=== PATIENT | female | born 1950 | race Caucasian/White ===

== ENCOUNTER 2025-04-29 19:09 | Inpatient (IN) | payer MEDICARE, BC ==
[~2025-04-29] VITALS: Ht 160 cm; Wt 52.5 kg
[~2025-04-29 19:09] MED LIST: ACET-1008 PO; ALPR1TAB2 PO; LOP25T PO; REM15T PO
--- NOTE | 2025-04-29 19:24 | ELECTROCARDIOGRAPH REPORT ---
[facility] Test Date: 2025-04-29 Test Time: 19:16:35 Pat Name: STEPHANY ALBERTS Department: EMERGENCY ROOM Room: [place] [address] Gender: F Electroplater: SANGEETHA : 1950 Requested By: FEROZ UNDERWOOD Order Number: [id number] Reading MD: Dr. Romel Gonzales Measurements Intervals [place] Rate: 57 P: 23 AK: 173 QRS: 12 QRSD: 96 T: 63 QT: 459 QTc: 447 Interpretive Statements Sinus bradycardia Borderline T wave abnormalities Electronically Signed On 05-07-2025 20:06:[address] Romel Gonzales Please click the below link to view image of tracing.
[2025-04-29 19:34] LABS: MEAN PLATELET VOLUME 8.0 FL (7.4-10.4); RED CELL DISTRIBUTION WIDTH 15.3 % (11.5-14.5)
[2025-04-29 19:39] LABS: CREATININE 0.70 MG/DL (0.40-0.90); TOTAL CARBON DIOXIDE 28.1 MMOL/L (24-32); eCRCL 46 ML/MIN; eGFR 82 ML/MIN
[2025-04-29 19:44] LABS: APTT 26 SECONDS (22-32); INR 1.0 INR
--- NOTE | 2025-04-29 19:45 | RADIOLOGY REPORT ---
CT BRAIN WITHOUT CONTRAST HISTORY: Stroke Alert. Slurred speech TECHNIQUE: Axial scans were obtained from the skull base through the vertex without contrast. Sagitta l and coronal reformats were generated. One or more of the following radiation dose reduction techniq ues were used for this examination: automated exposure control, adjustment of the mA and/or kV accord ing to patient size, use of iterative reconstruction technique. COMPARISON: None FINDINGS: Mild generalized cerebral atrophy. No acute intracranial hemorrhage or definite evidence of large vessel territorial infarction identifi ed at this time. Patchy periventricular and subcortical white matter hypoattenuation noted bilaterall y. No midline shift. The basilar cisterns are patent. The visualized paranasal sinuses and mastoid air cells are clear. No grossly displaced calvarial abno rmalities identified. IMPRESSION: No acute intracranial hemorrhage or definite evidence of large vessel territorial infarction identifi ed at this time. Nonspecific white matter changes which may be sequelae of chronic microangiopathy. If there is persistent clinical concern, MRI is recommended to further evaluate.
--- NOTE | 2025-04-29 19:47 | Physician Documentation ---
History of Present Illness ~ Chief Complaint: Stroke Alert Stated Complaint: STROKE SYMPTOMS Time Seen by MD: 19:46 Primary Medical Doctor: Benitez, psychiatry HPI Patient presents to the emergency room with altered mental status. Daughter at bedside states that she saw her mother normal at about 930 this morning when she came home to visit with her mother and drop off some medicines she was locked in her room and had to use a tool to open her room and found her on the floor not acting like herself. No new medications. Upon review of the medications med list that has appear that she takes benzodiazepines. Lips are very dry and this is something new for her reports daughter. Medication Reconciliation Allergies: Coded Allergies: Penicillins (Verified Allergy, Unknown, 04/29/25) aspirin (Verified Allergy, Unknown, 04/29/25) prochlorperazine (Verified Allergy, Unknown, 04/29/25) Scheduled Eszopiclone (Eszopiclone), 1 TAB PO HS, (Reported) Metoprolol Tartrate* (Lopressor*), 12.5 MG PO BID Mirtazapine* (Remeron*), 1 TAB PO HS, (Reported) Varenicline Tartrate (Varenicline Tartrate), 1 TAB PO DAILY, (Reported) Scheduled PRN Acetaminophen* (Tylenol*), 650 MG PO Q6H PRN for pain Alprazolam (Xanax), 0.5 TAB PO Q12H PRN PRN for for anxiety/agitation Miscellaneous Medications Desvenlafaxine Succinate (Desvenlafaxine Succinate ER), (Reported) Past Medical History Past Medical History: Vertigo, Anxiety Past Surgical History: cholecystectomy, tubal ligation Patient History: FH: cancer MOTHER Alcohol Use: Occasionally Drug Use: none Lives In: Home Review of Systems ROS All review of systems negative except as per HPI Physical Exam Vital Signs: Temperature: 98.2, Source: Oral, Heart Rate: 60, Respiratory Rate: 16, BP: 132/77, Pulse Oximetry: 97, Weight: 42.000 Oxygen Flow Rate: 0 General Appearance General: Patient is awake, alert, following commands, slow to respond but does respond appropriately Head: Normocephalic and atraumatic. Eyes: Conjunctival normal. EOMI. PERRL. ENT: Mucous membranes dry. Neck: Supple, trachea is midline. Chest: Clear to auscultation bilaterally without rales, rhonchi, or wheezes. There is no accessory muscle use or retractions. Cardiac: RRR without murmurs, gallops, or rubs. Abd: Soft, nondistended, nontender, with normoactive bowel sounds. No guarding, rebound, or rigidity. Neuro: Cranial nerves II-XII grossly intact. No focal neuro deficits. Negative [id number] test bilaterally Progress Results/Orders Results/Orders Orders - AUNG LIPSCOMB MD Monitor (04/29/25 19:16) 2 Large Bore Ivs (04/29/25 19:16) Chest,Single View (04/29/25 19:36) Accucheck (04/29/25 19:16) Ct Stroke Alert (04/29/25 19:15) Page Hospitalist (04/29/25 20:28) Fill Out Med Reconciliation (04/29/25 20:28) Completed Orders - AUNG LIPSCOMB MD Cbc/Diff (04/29/25 19:16) Electrocardiogram (04/29/25 19:16) Chest,Single View (04/29/25 19:36) Ct Stroke Alert (04/29/25 19:15) BMP (04/29/25 19:16) PTT (04/29/25 19:16) Pt Inr (04/29/25 19:16) Vital Signs 04/29/25 04/29/25 04/29/25 04/29/25 19:11 19:43 19:57 20:43 Temp 98.2 Pulse 60 58 58 Resp 16 16 16 16 B/P (MAP) 132/77 135/85 161/92 (115) Pulse Ox 97 97 98 O2 Flow Rate 0 0 Laboratory Tests Test 04/29/25 19:21 White Blood Count 5.6 Red Blood Count 4.24 Hemoglobin 11.7 L Hematocrit 35.4 Mean Corpuscular Volume 83.3 Mean Corpuscular Hemoglobin 27.5 Mean Corpuscular Hemoglobin Concent 33.0 Red Cell Distribution Width 15.3 H Platelet Count 209 Mean Platelet Volume 8.0 Neutrophils (%) (Auto) 69.9 Lymphocytes (%) (Auto) 19.0 L Monocytes (%) (Auto) 7.1 Eosinophils (%) (Auto) 3.2 Basophils (%) (Auto) 0.8 Neutrophils # (Auto) 3.9 Lymphocytes # (Auto) 1.1 Monocytes # (Auto) 0.4 Eosinophils # (Auto) 0.2 Basophils # (Auto) 0.0 CBC Comment Prothrombin Time 10.4 INR International Normalized Ratio 1.0 Activated Partial Thromboplast Time 26 Coagulation Comments Sodium Level 137 Potassium Level 3.6 Chloride Level 104 Carbon Dioxide Level 28.1 Anion Gap 5 L Blood Urea Nitrogen 5 L Creatinine 0.70 Estimated GFR/1.73 m2 82 BUN/Creatinine Ratio 7.1 L Glucose Level 101 Calcium Level 9.4 Albumin 3.5 Chemistry Comments Medical Decision Making Findings Patient presents to the emergency room with altered mental status. Differentials include but are not limited to stroke, metabolic encephalopathy, urinary tract infection, medication side effect therefore emergent labs and imaging indicated. CT scan is reassuring. Symptoms more consistent with metabolic disturbances. Possible relation to medication side effect from Xanax that was seen prescribed to her recently. We will admit for further investigation Departure Admitted to Inpatient Unit: yes, to hospitalist Impression: Primary Impression: Metabolic encephalopathy Additional Impression: Possible stroke Condition: Guarded Referrals: NO PRIMARY CARE PROVIDER (PCP) Signature Scribe Signature: No scribe Attestation: The note accurately reflects work and decisions made by me.Aung Lipscomb MD 04/29/25 21:23 AUNG LIPSCOMB MD Apr 29, 2025 19:47
--- NOTE | 2025-04-29 19:48 | RADIOLOGY REPORT ---
CHEST RADIOGRAPH Indication: Stroke Alert Technique: Single frontal view of the chest was obtained Comparison: CHEST,SINGLE VIEW on DOS: 05/06/23 FINDINGS: Lines and Tubes: None Lungs: No focal consolidation. Pleura: No effusion. No pneumothorax. Cardiomediastinal contours: Mild cardiomegaly with uncoiling of the aorta. Widening of the mediastinu m which may be from old coiling of the aorta without aneurysm or dissection not excluded Bones: No acute osseous abnormality. IMPRESSION: No acute cardiopulmonary disease. Mild cardiomegaly with widening of the mediastinum which may be from uncoiling of the aorta. CT shoul d be considered for further evaluation if clinically indicated.
[2025-04-29] MEDS ORDERED: DESV50TA20 (21:20)
[2025-04-29] MEDS ORDERED: ESZO3TAB44 PO (21:20)
[2025-04-29] MEDS ORDERED: VARE1TAB24 PO (21:20)
[2025-04-29] MEDS ORDERED: magnesium sulf-water 4G/100mL 100 ML IV PRN (21:45)
[2025-04-29] MEDS ORDERED: magnesium Cl slow-release 64mg tablet PO PRN (21:45)
[2025-04-29] MEDS ORDERED: mag hydrox/Alum hydrox/simeth 30ml oral suspension PO PRN (21:45)
[2025-04-29] MEDS ORDERED: magnesium sulf-water 2g/50mL 50 ML IV PRN (21:45)
[2025-04-29] MEDS ORDERED: potassium Cl 20 mEq SR tablet PO PRN (21:45)
[2025-04-29] MEDS ORDERED: potassium Cl 40MEQ/1/2NS 520ml 520 ML IV PRN (21:45)
[2025-04-29] MEDS ORDERED: ondansetron/PF 4mg/2ml inj IV PRN (21:45)
[2025-04-29] MEDS ORDERED: magnesium hydroxide 30ml (MOM) UD suspension PO PRN (21:45)
[2025-04-29] MEDS: CefTRIAXone 2gm/D5W 50ml BAG 50 ML IV SCH (22:04)
[2025-04-29] MEDS: normal saline 1000ml 1,000 ML IV SCH (22:04)
[2025-04-29 22:38] LABS: CREATININE 0.63 MG/DL (0.40-0.90); ETHANOL < 10 MG/DL (<10); PRO BRAIN NATRIURETIC PEPTIDE 162 PG/ML (0-450); TOTAL CARBON DIOXIDE 27.6 MMOL/L (24-32); eCRCL 51 ML/MIN; eGFR > 90 ML/MIN
[2025-04-29 23:00] VITALS: BP 160/98; PULSE 61; RESP 16; TEMP 97.8; O2SAT 97
--- NOTE | 2025-04-29 23:14 | [facility] CONSULT REPORT ---
[facility] Procedure Note [facility] Procedure Note Consult [facility] Note # Demographics Consult Type: Acute Stroke Level 2 (4.5-24 hrs) Patient Location: Emergency Room First Name: STEPHANY Last Name: LEXUS Date of : 1950 Age: 75 Gender: Female Facility: [facility] Time of Initial Page ([place] Time): 04/29/2025 19:47 Time of Return Call ([place] Time): 04/29/2025 19:47 Phone Agreement: - phone consult deemed mutually sufficient for patient care # HPI History: 75 y/o M presents with AMS and talking slowly. # Plan Labs: - CBC - comprehensive metabolic panel - TSH - urine drug screen - ua ETOH Imaging: (urgency: routine): - CT Head without contrast - MRI Brain without contrast - CT Angiogram Head and CT Angiogram Neck Other: - If patient has any neurological deterioration please call me back immediately # Logistics Attestation of consult completion: The patient is located at: [facility]. I performed this phone consultation from my offsite office Total time spent in telemedicine encounter: I spent 10 minutes in reviewing clinical data and/or imaging, obtaining history, communicating with the onsite care team, and in preparation of this report. # Demographics First Name: STEPHANY Last Name: LEXUS Facility: [facility] Electronically signed at 04/29/2025 23:14 ([place] Time) by Kera Neri DO Neuro Consult Order placed for: Yes MICHAEL NERI DO Apr 29, 2025 23:14
--- NOTE | 2025-04-29 23:16 | HISTORY AND PHYSICAL-Residence ---
History & Physical Providers to CC Resident Creating Document: PRETTY LONG RES ~ History of Present Illness Primary Medical Doctor: shira Marquis Reason for Admit\Complaint: Confusion History of Present Illness The 75-year-old female was brought to the ER with a chief concern of altered mental status. Patient is awake and is having confused speech. All the information is derived from her daughter was at the bedside. Per daughter, the patient was normal at around 9:30 a.m. this morning. She did all her toes. At around 10:30 a.m., patient accompanied her daughter to the bank but did not going to the bank and remained in the car. She Peed in her pants and also she looked lethargic to her daughter but she was oriented with her speech. Later, at around 5:40 p.m., the daughter noticed the patient being locked in her room. The patient kept on saying that she is not able to open the door. Door opened by the daughter and found the patient on the floor with urine around her. Denies any history of seizures and did not notice any abnormal movements. Did not notice any feces around her and is unsure if she had a fall. Patient had a drink this morning which contain 5% alcohol. Per daughter, patient has been having incontinence for the last few days. Denies any nausea, vomiting, constipation or diarrhea or any other complaints. Denies any CVA or cardiac issues in the past. Patient's daughter denies knowing any of her previous medical history. Has a DNR form. Patient lives by herself. Allergies: Coded Allergies: Penicillins (Verified Allergy, Unknown, 04/29/25) aspirin (Verified Allergy, Unknown, 04/29/25) prochlorperazine (Verified Allergy, Unknown, 04/29/25) Home Medications Home Medications Active Xanax (Alprazolam) 1 Mg Tablet 0.5 Tab PO Q12H PRN PRN 30 Days Lopressor* (Metoprolol Tartrate) 25 Mg Tablet 12.5 Mg PO BID 30 Days Tylenol* (Acetaminophen) 325 Mg Tablet 650 Mg PO Q6H PRN Reported Varenicline Tartrate 1 Mg Tablet 1 Tab PO DAILY Eszopiclone 3 Mg Tablet 1 Tab PO HS Desvenlafaxine Succinate ER (Desvenlafaxine Succinate) 50 Mg Tab.er.24h Remeron* (Mirtazapine) 15 Mg Tablet 1 Tab PO HS Past Medical History Past Medical History Patient is confused and daughter does not know her previous medical history. Per records, Vertigo, Anxiety, syncope, hypotension, breast cancer-refused treatment Past Surgical History Surgical History Comment Patient is confused and daughter does not know her previous medical history. Per records, Cholecystectomy, tubal ligation, wrist surgery Family History Family History: FH: cancer MOTHER Past Social History Social History Comment Per patient's daughter, denies smoking tobacco. Occasionally drinks alcohol and denies recreational drug abuse Alcohol Use: Occasionally Drug Use: None Lives In: Home ROS ROS Patient is confused and so could not do the review of systems Exam Vitals: Vital Signs Date Time Temp Pulse Resp B/P (MAP) Pulse Ox O2 Delivery O2 Flow Rate FiO2 04/29/25 20:43 58 16 161/92 (115) 98 0 04/29/25 19:11 98.2 General: Awake and alert. GCS 12-spontaneous eye opening, confused verbal response, withdraws from pain HEENT: Normocephalic and atraumatic. Pupils equal round reactive to light and accommodation. Extraocular movements intact. Oral and nasal mucosa moist Neck: Trachea is in midline. No masses or JVD Chest: Bilateral normal breath sounds. No crackles, rhonchi or wheezes Cardiovascular: Regular rate and rhythm. S1-S2 normal. No rubs or murmurs Abdomen: Soft, nontender nondistended. Bowel sounds present Extremities: No cyanosis, clubbing or edema Central Nervous System: Patient is not able to follow commands. Is able to move all her extremities without any difficulty Skin: Warm and dry Diagnostic Data Last Recorded Lab Results: 04/29/25192004/29/250 Diagnostic Data: Laboratory Tests Test 04/29/25 19:21 Prothrombin Time 10.4 SECONDS (9.0-12.0) INR International Normalized Ratio 1.0 INR Activated Partial Thromboplast Time 26 SECONDS (22-32) Coagulation Comments Advance Care Planning Advanced Care plannin - 30 Minutes Additional Plan Acute encephalopathy Could be toxic from medication overdose-has Xanax, Lunesta in her home medications Hold Xanax and Lunesta Pending urine analysis and urine tox Ethyl alcohol level not elevated Urine incontinence. So, started Rocephin 2 g IV daily prophylactically for possible UTI Head CT showed no acute intracranial abnormalities. Findings of chronic microangiopathy Tele neurology consult done. Recommended head MRI, head and neck CTA, CBC, CMP, TSH, urine tox screen, UA, ethyl alcohol All the above orders placed Pending ammonia levels. Normal LFTs EKG shows sinus bradycardia with non specific T-wave inversions. Held home medication metoprolol Heart rate remains in 50s Continue normal saline at 75 cc/hour Mediastinal widening Chest x-ray shows mild cardiomegaly with widening of the mediastinum which may be from old coiling of the aorta without aneurysm or dissection not excluded Chest CTA ordered per tele software computer specialist recommendations to look for dissection Patient denies any chest pain or back pain Systolic blood pressure in 160 and 170s Did not give any antihypertensive medication as stroke is not ruled out yet Tobacco abuse Patient's daughter denies any tobacco abuse Has varenicline in her home medications Continue varenicline 1 mg p.o. daily # Diet: Start heart healthy diet if passes swallow evaluation. Able to drink water with a renin difficulty DVT prophylaxis: Start Lovenox 40 mg subcutaneous daily after head MRI Pretty Long MD Internal Medicine Resident, PGY 3 Patient evaluated using HIPPA compliant AV device early hours of today Discussed with resident as outlined above Marco Hope MD Date of Service: Apr 30, 2025 Billing Provider: MARCO HOPE MD, MANOJNA RES Apr 29, 2025 23:16 MARCO HOPE MD Apr 30, 2025 16:41
[2025-04-30 03:58] LABS: LEUKOCYTE ESTERASE ,URINE LARGE (Neg); NITRITES, URINE POSITIVE (Neg); OCCULT BLOOD,URINE NEGATIVE (Neg); URINE AMPHETAMINE SCREEN NEGATIVE (Neg); URINE BARBITUATE SCREEN NEGATIVE (Neg); URINE BENZODIAZEPINES SCREEN POSITIVE (Neg); URINE CANNABINOID SCREEN NEGATIVE (Neg); URINE COCAINE SCREEN NEGATIVE (Neg); URINE METHADONE SCREEN NEGATIVE (Neg); URINE OPIATE SCREEN NEGATIVE (Neg); URINE PHENCYCLIDINE SCREEN NEGATIVE (Neg)
[2025-04-30 04:02] LABS: UA COLLECTION TYPE NON-SPECIFIED
[2025-04-30 04:07] LABS: SQUAMOUS EPITHELIAL CELL,UR FEW /LPF (FEW); WBC CLUMPS,URINE MODERATE /HPF (NEGATIVE)
[2025-04-30 06:00] VITALS: BP 154/79; PULSE 57; RESP 16; TEMP 97.4; O2SAT 98
[2025-04-30] MEDS ORDERED: iohexol 350 MG/ML 50ML vial IV ONE (07:18)
[2025-04-30] MEDS: K and/or MAG REPLACEMENT MC SCH (08:00)
[2025-04-30 10:00] VITALS: BP 167/89; PULSE 60; RESP 20; TEMP 97.2; O2SAT 94
--- NOTE | 2025-04-30 10:07 | RADIOLOGY REPORT ---
INDICATION: rule out large vessel occlusion COMPARISON: CT head dated 04/29/2025 TECHNIQUE: CTA head with intravenous contrast. CTA neck with intravenous contrast. 3D image postpr ocessing was performed on a dedicated workstation and images were used for interpretation and reporti ng. Radiation Dose Information: CT Dose: CTDI volume is 11 mGy. Dose-length product is 389 mGy*cm FINDINGS: CTA head: There is normal enhancement of the visualized distal internal carotid, anterior and middle cerebral a rteries. There is a normal anterior communicating artery complex. There are bilateral posterior com municating arteries. The vertebral, basilar, cerebellar and posterior cerebral arteries are within n ormal limits. The early parenchymal enhancement is grossly unremarkable. The visualized intracrania l venous structures are grossly unremarkable. CTA neck: The visualized thoracic aortic arch and proximal great vessels are unremarkable. Atherosclerotic plaque at bilateral proximal internal carotid arteries and carotid artery bulbs with less than 50% stenosis. The cervical segments of the right and left vertebral arteries are within normal limits. The limited visualized lung apices are clear. Degenerative changes of the spine. Grade 1 anterolisthesis of C4 on C5. IMPRESSION: No evidence of hemodynamically significant intracranial stenosis, proximal occlusion or aneurysm. No evidence of hemodynamically significant cervical stenosis or dissection. All CT scans at this medical facility are performed using dose modulation techniques as appropriate t o a performed exam including the following: Automated exposure control was utilized; adjustment of th e MA and/or KV according to patient size; and use of iterative reconstruction technique.
[2025-04-30 10:23] LABS: MEAN PLATELET VOLUME 7.9 FL (7.4-10.4); RED CELL DISTRIBUTION WIDTH 15.2 % (11.5-14.5)
[2025-04-30 10:37] LABS: APTT 31 SECONDS (22-32); INR 1.4 INR
[2025-04-30 10:48] LABS: CHOL/HDL RATIO 2.9 (0.00-4.99); CREATININE 0.58 MG/DL (0.40-0.90); LDL CHOLESTEROL 101 MG/DL (50-100); PHOSPHORUS 3.5 MG/DL (2.3-4.5); TOTAL CARBON DIOXIDE 26.4 MMOL/L (24-32); eCRCL 69 ML/MIN; eGFR > 90 ML/MIN
[2025-04-30 18:00] VITALS: BP 181/99; PULSE 64; RESP 16; TEMP 97.9; O2SAT 95
--- NOTE | 2025-04-30 20:19 | RADIOLOGY REPORT ---
COMPUTERIZED TOMOGRAPHIC ANGIOGRAPHY OF THE CHEST WITH INTRAVENOUS CONTRAST REASON FOR EXAM: r/o dissection. Chest pain. COMPARISON: None TECHNIQUE: The exam was performed on a multidetector spiral scanner. Spiral images were acquired fro m the thoracic inlet through the adrenal glands, during the bolus intravenous administration of cont rast. Multiplanar maximum intensity projection (MIP) images were provided. Radiation optimization: Al l CT scans at this facility use at least one of these dose optimization techniques: Automated exposur e control mA and/or kV adjustment per patient size (includes targeted exams where dose is matched to clinical indication) or iterative reconstruction. RADIATION DOSE: CTDI: 47 mGy DLP: 504 mGy-cm FINDINGS: There is a 4 mm pleural-based triangular nodule in the inferior right middle lobe most con sistent with an intrapulmonary lymph node. There is mild dependent atelectasis in bilateral lower lob es of the lungs. There is no pleural effusion. There is no pneumothorax. The heart is enlarged. The re is no pericardial effusion. The ascending aorta is mildly aneurysmal at 4.1 cm. There is no thorac ic aortic dissection or intramural hematoma. There is no pulmonary arterial filling defect as far as the interlobar level to suggest pulmonary embolism. No pathologic lymphadenopathy is identified in th e chest by size criteria. The upper abdomen is partially visualized. The gallbladder is surgically absent. There is mild intrah epatic biliary dilation, likely secondary to cholecystectomy. There is acute appearing moderate compr ession deformity of T12. There is age-indeterminate mild compression deformity at the superior endpl ate of L1. There are additional chronic appearing mild compression deformities at T9 and T10. IMPRESSION: No thoracic aortic dissection or intramural hematoma. Mild aneurysmal dilation of the ascending aorta at 4.1 cm. No evidence of pulmonary embolism as far as the interlobar level. Acute appearing moderate compression deformity at T12. Additional indeterminate and chronic compressi on deformities at L1, T9, and T10. Correlate clinically for chronicity of back pain. MRI can be perfo rmed if clinically indicated to determine chronicity of compression fractures.
--- NOTE | 2025-04-30 21:01 | PROGRESS NOTE ---
Daily Progress Note Providers to CC ~ Antibiotic Timeout Antibiotic Ordered?: No Subjective Patient was seen in presence of her daughter her daughter does not live with her and patient lives by herself. She was confused take all four or five psych meds from Dr. Mejia. Blood pressure was elevated for which antihypertensive medication started. Objective Vital Signs Date Time Temp Pulse Resp B/P (MAP) Pulse Ox O2 Delivery O2 Flow Rate FiO2 04/30/25 18:30 73 04/30/25 10:00 97.2 20 167/89 (115) 94 Room Air 04/30/25 08:00 0.0 Result Diagram: 04/30/25 1010 04/30/25 1010 General-patient not in any acute distress, chronically ill-appearing, confused HEENT-atraumatic normocephalic, neck supple without elevated JVD, no thyromegaly or carotid bruit. No lymphadenopathy bilaterally. Eyes-no icterus or pallor seen in eyes Chest-clear to auscultation bilaterally, breathing nonlabored no tachypnea, no wheezing, no crepitation, no crackles. Heart-S1-S2 normal, regular heart rate no murmur Abdomen bowel sounds positive on auscultation, soft nondistended nontender no guarding, no rigidity Skin no active skin rash Neurology-grossly intact, nonfocal , patient is confused signs of dementia present Extremity- no pedal edema able to move all 4 extremities Psychiatry - patient is confused but not agitated cooperated during physical examination Coagulation Studies Laboratory Tests Test 04/30/25 10:10 Prothrombin Time 14.0 SECONDS (9.0-12.0) H INR International Normalized Ratio 1.4 INR Activated Partial Thromboplast Time 31 SECONDS (22-32) Coagulation Comments Problem\Assessment\Plan Acute encephalopathy Could be toxic from medication overdose-has Xanax, Lunesta and other her home medications Urine testing showed signs of UTI on ceftriaxone currently. Ethyl alcohol level not elevated Head CT showed no acute intracranial abnormalities. Findings of chronic microangiopathy Tele neurology consult done. Recommended head MRI, head and neck CTA, CBC, CMP, TSH, urine tox screen, UA, ethyl alcohol All the above orders placed normal ammonia levels. Normal LFTs EKG shows sinus bradycardia with non specific T-wave inversions. Held home medication metoprolol Heart rate remains in 50s Continue normal saline at 75 cc/hour Mediastinal widening Chest x-ray shows mild cardiomegaly with widening of the mediastinum which may be from old coiling of the aorta without aneurysm or dissection not excluded Chest CTA ordered per tele lingo cleaner recommendations to look for dissection Patient denies any chest pain or back pain Systolic blood pressure in 160 and 170s, started on antihypertensive meds Tobacco abuse Patient's daughter denies any tobacco abuse Has varenicline in her home medications Continue varenicline 1 mg p.o. daily Patient's current condition is guarded we will continue to follow patient in AM . Date of Service: Apr 30, 2025 Billing Provider: VALERIE MOISE MD Common Visit Codes: [id number] INP/OBS CARE(HIGH) VALERIE MOISE MD Apr 30, 2025 21:01
[2025-04-30 22:00] VITALS: BP 121/86; PULSE 57; RESP 18; O2SAT 97
[2025-05-01] MEDS ORDERED: haloperidol lactate 5mg/ml inj IM PRN (00:10)
[2025-05-01 05:27] LABS: MEAN PLATELET VOLUME 8.5 FL (7.4-10.4); RED CELL DISTRIBUTION WIDTH 15.7 % (11.5-14.5)
[2025-05-01 05:42] LABS: APTT 26 SECONDS (22-32); INR 1.0 INR
[2025-05-01 05:55] LABS: CREATININE 0.56 MG/DL (0.40-0.90); PHOSPHORUS 3.7 MG/DL (2.3-4.5); TOTAL CARBON DIOXIDE 28.4 MMOL/L (24-32); eCRCL 72 ML/MIN; eGFR > 90 ML/MIN
[2025-05-01 06:00] VITALS: BP 127/80; PULSE 74; RESP 14; TEMP 97.8; O2SAT 96
[2025-05-01 10:00] VITALS: BP 109/76; PULSE 57; RESP 16; TEMP 97.8; O2SAT 96
--- NOTE | 2025-05-01 15:53 | RADIOLOGY REPORT ---
CLINICAL INDICATION: rule out stroke COMPARISON: CT dated 04/29/2025. CTA dated 04/30/2025. TECHNIQUE: Multisequence multiplanar MRI images of the brain were obtained without contrast. FINDINGS: Motion artifact limits evaluation on some sequences, greatest involving the T2 star sequenc e, limiting evaluation. No acute infarct or hemorrhage. No mass or midline shift. Scattered areas of T2/FLAIR hyperintense signal in the periventricular and subcortical white matter are nonspecific, but most likely sequelae of chronic small vessel ischemic disease. Partially empty sella. Atrophic spaulding es with dilation of the ventricles and widening of the sulci. Basal cisterns are patent. Cerebellum, brainstem, and midline structures are within normal limits. Mild mucosal thickening of the paranasal sinuses with fluid filling the left side of the sphenoid sinus. Bilateral lens prostheses incidentall y noted. Orbits are otherwise grossly unremarkable. IMPRESSION: 1. Motion limited study. 2. No evidence of acute infarct. No evidence of acute intracranial abnormality. 3. Nonacute findings as described above.
[2025-05-01 18:30] VITALS: BP 102/68; PULSE 64; RESP 16; TEMP 97.6; O2SAT 96
[2025-05-01 22:00] VITALS: BP 93/57; PULSE 58; RESP 17; TEMP 97.4; O2SAT 93
[2025-05-01] MEDS: potassium Cl 20 mEq SR tablet PO PRN (22:32)
[2025-05-02 05:25] LABS: MEAN PLATELET VOLUME 8.3 FL (7.4-10.4); RED CELL DISTRIBUTION WIDTH 15.2 % (11.5-14.5)
[2025-05-02 05:38] LABS: APTT 24 SECONDS (22-32); INR 1.0 INR
[2025-05-02 05:46] LABS: TOTAL CARBON DIOXIDE 24.4 MMOL/L (24-32)
[2025-05-02 05:47] LABS: CREATININE 1.00 MG/DL (0.40-0.90); PHOSPHORUS 4.4 MG/DL (2.3-4.5); eCRCL 40 ML/MIN; eGFR 54 ML/MIN
[2025-05-02 06:00] VITALS: BP 100/55; PULSE 60; RESP 17; TEMP 97.8; O2SAT 93
[2025-05-02 10:00] VITALS: BP 100/76; PULSE 61; RESP 15; TEMP 97.7; O2SAT 99
[2025-05-02 13:39] VITALS: BP 100/76; PULSE 61; RESP 15; TEMP 97.7; O2SAT 99
--- NOTE | 2025-05-02 14:38 | PROGRESS NOTE ---
Daily Progress Note Providers to CC ~ Antibiotic Timeout Antibiotic Ordered?: Yes Subjective Patient was seen in her room she is less confused as compared to yesterday and able to communicate her needs. Objective Vital Signs Date Time Temp Pulse Resp B/P (MAP) Pulse Ox O2 Delivery O2 Flow Rate FiO2 05/02/25 13:39 97.7 61 15 100/76 (84) 99 Room Air 05/01/25 08:00 0.0 Result Diagram: 05/02/25 0454 05/02/25 0454 General-patient not in any acute distress, chronically ill-appearing, less confused HEENT-atraumatic normocephalic, neck supple without elevated JVD, no thyromegaly or carotid bruit. No lymphadenopathy bilaterally. Eyes-no icterus or pallor seen in eyes Chest-clear to auscultation bilaterally, breathing nonlabored no tachypnea, no wheezing, no crepitation, no crackles. Heart-S1-S2 normal, regular heart rate no murmur Abdomen bowel sounds positive on auscultation, soft nondistended nontender no guarding, no rigidity Skin no active skin rash Neurology-grossly intact, nonfocal , patient is less confused Extremity- no pedal edema able to move all 4 extremities Psychiatry - patient is confused but not agitated cooperated during physical examination Coagulation Studies Laboratory Tests Test 05/02/25 04:54 Prothrombin Time 10.6 SECONDS (9.0-12.0) INR International Normalized Ratio 1.0 INR Activated Partial Thromboplast Time 24 SECONDS (22-32) Coagulation Comments Problem\Assessment\Plan Acute encephalopathy Could be toxic from medication overdose-has Xanax, Lunesta and other her home medications Urine testing showed signs of UTI on ceftriaxone currently. Ethyl alcohol level not elevated Head CT showed no acute intracranial abnormalities. Findings of chronic microangiopathy Tele neurology consult done. Recommended head MRI, head and neck CTA, CBC, CMP, TSH, urine tox screen, UA, ethyl alcohol All the above orders placed normal ammonia levels. Normal LFTs EKG shows sinus bradycardia with non specific T-wave inversions. Held home medication metoprolol Heart rate remains in 50s Continue normal saline at 75 cc/hour Mediastinal widening Chest x-ray shows mild cardiomegaly with widening of the mediastinum which may be from old coiling of the aorta without aneurysm or dissection not excluded Chest CTA ordered per tele golf cart maker recommendations to look for dissection Patient denies any chest pain or back pain Systolic blood pressure in 160 and 170s, started on antihypertensive meds Tobacco abuse Patient's daughter denies any tobacco abuse Has varenicline in her home medications Continue varenicline 1 mg p.o. daily Patient's current condition is guarded we will continue to follow patient in AM . Patient is medically clear for mental health evaluation. Date of Service: May 01, 2025 Billing Provider: VALERIE MOISE MD Common Visit Codes: [id number] INP/OBS CARE(HIGH) VALERIE MOISE MD May 02, 2025 14:38
[2025-05-02 18:00] VITALS: BP 139/92; PULSE 84; RESP 14; TEMP 97.5; O2SAT 96
--- NOTE | 2025-05-02 19:10 | PROGRESS NOTE ---
Daily Progress Note Providers to CC ~ Antibiotic Timeout Antibiotic Ordered?: No Subjective Patient was seen in presence of patient's daughter who was present at bedside. All labs and diagnostic workup discussed in detail. It is recommended that she should talk to the casey saw operator regarding care plan [place] [id number] in we will be evaluated by [facility]. franchise manager Ms. Teran working on discharge plan Objective Vital Signs Date Time Temp Pulse Resp B/P (MAP) Pulse Ox O2 Delivery O2 Flow Rate FiO2 05/02/25 18:00 97.5 84 14 139/92 (108) 96 Room Air 05/01/25 08:00 0.0 Result Diagram: 05/02/25 0454 05/02/25 0454 General-patient not in any acute distress, chronically ill-appearing, not confused HEENT-atraumatic normocephalic, neck supple without elevated JVD, no thyromegaly or carotid bruit. No lymphadenopathy bilaterally. Eyes-no icterus or pallor seen in eyes Chest-clear to auscultation bilaterally, breathing nonlabored no tachypnea, no wheezing, no crepitation, no crackles. Heart-S1-S2 normal, regular heart rate no murmur Abdomen bowel sounds positive on auscultation, soft nondistended nontender no guarding, no rigidity Skin no active skin rash Neurology-grossly intact, nonfocal , patient is not confused Extremity- no pedal edema able to move all 4 extremities Psychiatry - patient is confused but not agitated cooperated during physical examination Coagulation Studies Laboratory Tests Test 05/02/25 04:54 Prothrombin Time 10.6 SECONDS (9.0-12.0) INR International Normalized Ratio 1.0 INR Activated Partial Thromboplast Time 24 SECONDS (22-32) Coagulation Comments Problem\Assessment\Plan Acute encephalopathy Could be toxic from medication overdose-has Xanax, Lunesta and other her home medications Urine testing showed signs of UTI on ceftriaxone currently. Ethyl alcohol level not elevated Head CT showed no acute intracranial abnormalities. Findings of chronic microangiopathy Tele neurology consult done. Recommended head MRI, head and neck CTA, CBC, CMP, TSH, urine tox screen, UA, ethyl alcohol All the above orders placed normal ammonia levels. Normal LFTs EKG shows sinus bradycardia with non specific T-wave inversions. Held home medication metoprolol Heart rate remains in 50s Continue normal saline at 75 cc/hour Mediastinal widening Chest x-ray shows mild cardiomegaly with widening of the mediastinum which may be from old coiling of the aorta without aneurysm or dissection not excluded Chest CTA ordered per tele it software developer recommendations to look for dissection Patient denies any chest pain or back pain Systolic blood pressure in 160 and 170s, started on antihypertensive meds Tobacco abuse Patient's daughter denies any tobacco abuse Has varenicline in her home medications Continue varenicline 1 mg p.o. daily Patient's current condition is guarded we will continue to follow patient in AM . Patient is medically clear for mental health evaluation. Date of Service: May 02, 2025 Billing Provider: VALERIE MOISE MD Common Visit Codes: [id number] INP/OBS CARE(HIGH) VALERIE MOISE MD May 02, 2025 19:10
[2025-05-02 22:00] VITALS: BP 142/92; PULSE 71; RESP 16; TEMP 98.2; O2SAT 98
[2025-05-03 06:00] VITALS: BP 161/84; PULSE 69; RESP 16; TEMP 98.2; O2SAT 99
[2025-05-03 06:37] LABS: CREATININE 0.51 MG/DL (0.40-0.90); PHOSPHORUS 3.3 MG/DL (2.3-4.5); TOTAL CARBON DIOXIDE 24.9 MMOL/L (24-32); eCRCL 79 ML/MIN; eGFR > 90 ML/MIN
[2025-05-03 07:48] LABS: MEAN PLATELET VOLUME 8.5 FL (7.4-10.4); RED CELL DISTRIBUTION WIDTH 15.4 % (11.5-14.5)
[2025-05-03 08:00] VITALS: RESP 16; O2SAT 99
[2025-05-03 08:33] LABS: INR 1.0 INR
[2025-05-03 10:00] VITALS: BP 135/86; PULSE 92; RESP 16; TEMP 98.1; O2SAT 95
--- NOTE | 2025-05-03 19:19 | DISCHARGE SUMMARY ---
Discharge Summary Providers to CC ~ Discharge Summary Admission Diagnosis: Acute encephalopathy Hospital Course DATE OF ADMISSION: April 29, 2025 DATE OF DISCHARGE: May 03, 2025 Lab testing done on May 03, 2025 showed normal CBC, normal CMP. Urine drug screen positive for benzodiazepine ethyl alcohol less than 10. Urine culture showed mixed nelson MRI HEADIMPRESSION: 1. Motion limited study. 2. No evidence of acute infarct. No evidence of acute intracranial abnormality. 3. Nonacute findings as described above. CTA CHEST AORTAIMPRESSION: No thoracic aortic dissection or intramural hematoma. Mild aneurysmal dilation of the ascending aorta at 4.1 cm. No evidence of pulmonary embolism as far as the interlobar level. Acute appearing moderate compression deformity at T12. Additional indeterminate and chronic compression deformities at L1, T9, and T10. Correlate clinically for chronicity of back pain. MRI can be performed if clinically indicated to determine chronicity of compression fractures. CTA NECK/HEAD-IMPRESSION: No evidence of hemodynamically significant intracranial stenosis, proximal occlusion or aneurysm. No evidence of hemodynamically significant cervical stenosis or dissection. All CT scans at this medical facility are performed using dose modulation techniques as appropriate to a performed exam including the following: Automated exposure control was utilized; adjustment of the MA and/or KV according to patient size; and use of iterative reconstruction technique. CHEST,SINGLE VIEW-IMPRESSION: No acute cardiopulmonary disease. Mild cardiomegaly with widening of the mediastinum which may be from uncoiling of the aorta. CT should be considered for further evaluation if clinically indic ated. CT STROKE ALERT-IMPRESSION: No acute intracranial hemorrhage or definite evidence of large vessel territorial infarction identified at this time. Nonspecific white matter changes which may be sequelae of chronic microangiopat hy. If there is persistent clinical concern, MRI is recommended to further evaluate. Discharge Diagnosis\Comment: Acute encephalopathy secondary to psychiatric medication- resolved Acute appearing moderate compression deformity at T12. chronic compression deformities at L1, T9, and T10. Alcohol use Tobacco abuse Operations\Procedures: None Consultants: None Complications: None Condition on DC: Stable Continued Medications: Acetaminophen* (Tylenol*) 325 Mg Tablet 650 MG PO Q6H PRN for pain, #30 2 Refills Alprazolam (Xanax) 1 Mg Tablet 0.5 TAB PO Q12H PRN PRN for for anxiety/agitation for 30 Days, #30 TAB Desvenlafaxine Succinate (Desvenlafaxine Succinate ER) 50 Mg Tab.er.24h Eszopiclone (Eszopiclone) 3 Mg Tablet 1 TAB PO HS Metoprolol Tartrate* (Lopressor*) 25 Mg Tablet 12.5 MG PO BID for 30 Days, 3 Refills Mirtazapine* (Remeron*) 15 Mg Tablet 1 TAB PO HS, TAB Varenicline Tartrate (Varenicline Tartrate) 1 Mg Tablet 1 TAB PO DAILY Discharge Summary: Acute encephalopathy -resolved Could be toxic from medication overdose-has Xanax, Lunesta and other her home medications Urine testing showed signs of UTI on ceftriaxone currently urine culture showed mixed nelson Mediastinal widening Chest x-ray shows mild cardiomegaly with widening of the mediastinum which may be from old coiling of the aorta without aneurysm or dissection not excluded Chest CTA No thoracic aortic dissection or intramural hematoma. Mild aneurysmal dilation of the ascending aorta at 4.1 cm. o evidence of pulmonary embolism as far as the interlobar level. Tobacco abuse Has varenicline in her home medications Continue varenicline 1 mg p.o. daily Patient was started on 1798 and evaluated by [facility]. They discharge the patient today and patient ambulated with physical therapy. Patient is feeling better and it was strongly recommended to the patient not to combine alcohol with the her other benzodiazepine and psychiatric meds. She is getting discharged home in stable condition. Patient is seen and examined on the day of discharge discharge instructions provided to the patient all questions and concerns answered to the best of my professional medical knowledge. PLEASE FOLLOW-UP WITH PCP, PSYCHIATRY SPECIALIST IN ONE WEEK. READ THE SIDE EFFECTS OF ALL YOUR MEDICATION AND DISCUSSED WITH THE PRIMARY CARE P HYSICIAN AND PSYCHIATRY SPECIALIST WHO IS PRESCRIBING THOSE MEDICATIONS TO YOU. PLEASE PROVIDE FALL PRECAUTIONS DOCUMENT IT IS RECOMMENDED TO USE THE CANE FOR AMBULATION. PLEASE DO NOT COMBINE YOUR MEDICATIONS WITH ALCOHOL. General-patient not in any acute distress, chronically ill-appearing, not confused HEENT-atraumatic normocephalic, neck supple without elevated JVD, no thyromegaly or carotid bruit. No lymphadenopathy bilaterally. Eyes-no icterus or pallor seen in eyes Chest-clear to auscultation bilaterally, breathing nonlabored no tachypnea, no wheezing, no crepitation, no crackles. Heart-S1-S2 normal, regular heart rate no murmur Abdomen bowel sounds positive on auscultation, soft nondistended nontender no guarding, no rigidity Skin no active skin rash Neurology-grossly intact, nonfocal , patient is not confused Extremity- no pedal edema able to move all 4 extremities Psychiatry - patient is confused but not agitated cooperated during physical examination *Problems/Diagnosis: (1) Metabolic encephalopathy Status: Acute Total Time Spent on D/C: > 30 Minutes Date of Service: May 03, 2025 Billing Provider: VALERIE MOISE MD Common Visit Codes: [id number] DISCH DAY >30min VALERIE MOISE MD May 03, 2025 19:12
== END 2025-05-03 15:15 | disposition home health service (06) | DRG 917 ==
LOC: ER 19:10 → ED HOLD 21:47 → ORTHO 4S 23:04 → SUR 3N 05-03 11:15
PROVIDERS: ADMIT Internal Medicine; ATTEND Internal Medicine
PROC: B32T1ZZ Computerized Tomography (CT Scan) of Left Pulmonary Artery using Low Osmolar Contrast (ICD-10-PCS; principal; 2025-04-30)
PROC: B3201ZZ Computerized Tomography (CT Scan) of Thoracic Aorta using Low Osmolar Contrast (ICD-10-PCS; 2025-04-30)
PROC: B32S1ZZ Computerized Tomography (CT Scan) of Right Pulmonary Artery using Low Osmolar Contrast (ICD-10-PCS; 2025-04-30)
PROC: B3251ZZ Computerized Tomography (CT Scan) of Bilateral Common Carotid Arteries using Low Osmolar Contrast (ICD-10-PCS; 2025-04-30)
PROC: B32G1ZZ Computerized Tomography (CT Scan) of Bilateral Vertebral Arteries using Low Osmolar Contrast (ICD-10-PCS; 2025-04-30)
PROC: B32R1ZZ Computerized Tomography (CT Scan) of Intracranial Arteries using Low Osmolar Contrast (ICD-10-PCS; 2025-04-30)
PROC: B3281ZZ Computerized Tomography (CT Scan) of Bilateral Internal Carotid Arteries using Low Osmolar Contrast (ICD-10-PCS; 2025-04-30)
DX: T42.4X1A Poisoning by benzodiazepines, accidental (unintentional), initial encounter (principal); G92.8 Other toxic encephalopathy; N39.0 Urinary tract infection, site not specified; F41.9 Anxiety disorder, unspecified; F10.90 Alcohol use, unspecified, uncomplicated; I71.21 Aneurysm of the ascending aorta, without rupture; Z88.6 Allergy status to analgesic agent; Z88.0 Allergy status to penicillin; Z88.8 Allergy status to other drugs, medicaments and biological substances; Z90.49 Acquired absence of other specified parts of digestive tract; Y92.89 Other specified places as the place of occurrence of the external cause; Z72.0 Tobacco use
CPT/HCPCS: 36415; 70450; 70496; 70498; 70551; 71045; 71275; 80048; 80053; 80061; 80305; 80320; 81001; 82140; 82948; 83036; 83735; 83880; 84100; 84439; 84443; 85025; 85610; 85730; 87081; 87088; 92508; 92616; 93005; 97116; 97162; 97530; 99285; A6258; G0378; J0696; J2060; J7030; Q9967